=== PATIENT | female | born 1995 | race American Indian/Alaskan Native ===

== ENCOUNTER 2017-07-11 01:49 | Emergency (ER) | payer OTHER ==
[2017-07-11] MEDS ORDERED: TORADOL IM ONE (07:47)
[2017-07-11] MEDS ORDERED: NORCO 5/325 PO ONE (07:47)
[2017-07-11] MEDS ORDERED: DECADRON IM ONE (07:47)
--- NOTE | 2017-07-11 07:49 | Emergency Department Report ---
ED Neck Pain HPI Chief Complaint: Neck Pain/Injury Stated Complaint: BACK PAIN Time Seen by Provider: 07/11/17 07:09 Duration: 1 week Neck Pain Location: Posterior Neck Severity: severe Mechanism: Unsure, Other (patient reports history of scoliosis and had surgery 10 years ago. She reports some pain to her upper back bilaterally) Symptoms: Yes Pain with Movement (posterior neck and denies radiation of pain), Yes Previous History (patient reports that she has a previous history of upper back pain radiating into her upper neck from scoliosis.), No Numbness, No Weakness Other History: Patient reports that she have neck pain 1 week and she notice when she woke up 1 week ago and pain is located in the back of her neck denies any fever or chills. Denies any stiffness in her neck. Denies any radiation of pain to extremities. Denies any pain bilateral neck. She says she's been taking tramadol 50 mg every 2 hours Advil and Aleve PM. She reports minimal relief of pain medication. Pain is worse with movement better with rest. Denies any nausea or vomiting. She reports pain to upper back located bilaterally but not midline. Patient with history of scoliosis status post surgery 10 years ago. Pain is achy. Patient reports that she thinks she is pinched nerve. Reports swelling to upper back and both sides. ED Review of Systems ROS: Stated complaint: BACK PAIN Other details as noted in HPI Constitutional: denies: chills, fever, weakness Eyes: denies: eye pain ENT: denies: ear pain, throat pain, congestion Respiratory: denies: cough, orthopnea, shortness of breath, SOB with exertion, SOB at rest, stridor, wheezing Cardiovascular: denies: chest pain, palpitations, syncope Gastrointestinal: denies: abdominal pain, nausea, vomiting Genitourinary: denies: urgency, dysuria, discharge Musculoskeletal: back pain (bilateral upper back and swelling), arthralgia. denies: joint swelling, myalgia Skin: denies: rash, lesions Neurological: denies: headache, weakness, numbness, paresthesias, confusion, abnormal gait, vertigo ED Past Medical Hx - Past Medical History Previous Medical History?: Yes Hx Asthma: Yes Additional medical history: Scoliosis status post back surgery 10 years ago - Surgical History Past Surgical History?: Yes Additional Surgical History: scoliosis surgery - Family History Family history: hypertension - Social History Smoking Status: Never Smoker Substance Use Type: None Other Social History: Single and employed - Medications Home Medications: Home Medications Medication Instructions Recorded Confirmed Last Taken Type Cyclobenzaprine [Flexeril] 10 mg PO TID PRN #12 tablet 07/11/17 Unknown Rx Ibuprofen [Motrin] 600 mg PO Q8H PRN #12 tablet 07/11/17 Unknown Rx traMADol [Ultram] 50 mg PO PRN 07/11/17 07/11/17 07/10/17 23:00 History Neck Pain Exam - Exam General: Vital signs noted. No distress. Alert and acting appropriately. This is a 21-year-old female well-nourished well-developed in no acute distress. HEENT: No Facial Pain, No Scalp Tenderness, No Contusion, No Abrasion, No Laceration Neck Pain: Yes Midline Tenderness (positive C-spine tenderness. Full range of motion, no adenopathy), Yes Pain with Extension, Yes Pain with Flexion, Yes pain with R Lateral Flexion, Yes Pain with L Lateral Flexion, No Right Paraspinal Tenderness, No Left Paraspinal Tenderness, No Right Trapezius Tenderness, No Left Trapezius Tenderness, No Pain with Rotation Right, No Pain with Rotation Left Chest: Yes Clear Lung Sounds (CTAB), No Pain with Respirations Heart: Yes Regular (S1S2), No Murmur Back: No Thoracic Tenderness (no vertebral or paraspinal tenderness), No Lumbar Tenderness (vertebral or paraspinal tenderness) Neuro: No Numbness (alert and oriented 3), No Weakness, No Normal Reflexes ( normal gait,), No Radicular Deficits Exam: Extremity: No clubbing, cyanosis or edema. +2 pulses all extremities and no neurovascular compromise ED Course Vital Signs 07/11/17 07/11/17 02:41 02:58 Temperature 98.4 F 98.4 F Pulse Rate 91 H 88 Respiratory 18 20 Rate Blood Pressure 130/78 130/78 Blood Pressure 130/78 [Right] O2 Sat by Pulse 100 100 Oximetry - Reevaluation(s) Reevaluation #1: 07/11/17 09:04 Patient given Toradol 30 mg I am, hydrocodone 5/325 mg 2 tablets by mouth and Decadron 10 mg by mouth with positive relief of neck pain. She says she is feeling better and I discussed her x-ray results with her. I told patient she will need to follow-up with orthopedic doctor for management of neck pain. ED Medical Decision Making - Radiology Data Radiology results: report reviewed X-rays C-spine: Straightening of the cervical spine with mild sequela of disc degeneration suggested C4-C5 and C5-C6. No acute findings. Patient: BERNARD SANTIAGO MR#: [id number] : 1995 Acct:[id number] Age/Sex: 21 / F ADM Date: 07/11/17 Loc: ED Attending Dr: Ordering Physician: MARA SWEET Date of Service: 07/11/17 Procedure(s): XR spine cervical 2-3V Accession Number(s): [id number] cc: MARA SWEET Fluoro Time In Minutes: FINAL REPORT EXAM: XR SPINE CERVICAL 2-3V HISTORY: pain spine, neck COMPARISONS: None. FINDINGS: AP and lateral views of the cervical spine Straightening of the cervical spine. Mild intervertebral disc space narrowing with endplate spondylosis at C4-C5 and C5-C6. Partially imaged thoracic fusion hardware extends off the inferior field of view. Prevertebral soft tissues are unremarkable. Incomplete evaluation of the lung apices is unremarkable. IMPRESSION: Straightening of the cervical spine with mild sequela of disc degeneration suggested C4-C5 and C5-C6. No acute findings. Transcribed By: FRED Dictated By: GIGI ARMIJO MD Electronically Authenticated By: GIGI ARMIJO MD Signed Date/Time: 07/11/17835 DD/ 5 TD/TT: 07/11/17835 - Medical Decision Making ED course: Patient is here with neck pain that started 1 week ago. Physical findings for tenderness palpated to C-spine. X-ray of C-spine shows patient with degenerative disc disease. I discussed diagnosis and x-ray results with patient and also treatment plan and follow-up and she voiced understanding. She was given Toradol 30 mg IM, Decadron 10 mg IM and [place] 5/325 2 tablets by mouth emergency room. Patient to follow-up with Dr. Pandya and she also does not have a primary care physician so I'll refer her to [facility]. Patient discharged home with her family in stable condition. Critical care attestation.: If time is entered above; I have spent that time in minutes in the direct care of this critically ill patient, excluding procedure time. ED Disposition Clinical Impression: Arthralgia of neck, Degenerative disc disease, cervical, Upper back pain Disposition: TO HOME OR SELFCARE Is pt being admited?: No Does the pt Need Aspirin: No Condition: Stable Instructions: Back Pain (ED), Degenerative Disc Disease (ED), Arthralgia (ED), Musculoskeletal Pain (ED), Neck Exercises (GEN) Additional Instructions: Please stop taking tramadol every 2 hours as this is a narcotic and this can impair judgment Follow-up with orthopedic doctor for arthritis in your cervical spine Take Flexeril as ordered but these do not drive or operate heavy machinery of this medication can cause drowsiness Prescriptions: Cyclobenzaprine [Flexeril] 10 mg PO TID PRN #12 tablet PRN Reason: Muscle Spasm Ibuprofen [Motrin] 600 mg PO Q8H PRN #12 tablet PRN Reason: Pain Referrals: [facility] [Outside] - 3-5 Days JEREMY PANDYA MD [Staff Physician] - 2-3 Days Forms: Work/School Release Form(ED)
--- NOTE | 2017-07-11 08:40 | XRay Report ---
FINAL REPORT EXAM: XR SPINE CERVICAL 2-3V HISTORY: pain spine, neck COMPARISONS: None. FINDINGS: AP and lateral views of the cervical spine Straightening of the cervical spine. Mild intervertebral disc space narrowing with endplate spondylosis at C4-C5 and C5-C6. Partially imaged thoracic fusion hardware extends off the inferior field of view. Prevertebral soft tissues are unremarkable. Incomplete evaluation of the lung apices is unremarkable. IMPRESSION: Straightening of the cervical spine with mild sequela of disc degeneration suggested C4-C5 and C5-C6. No acute findings.
[2017-07-11 09:27] VITALS: BP 124/71
== END 2017-07-11 09:26 | disposition home or self-care (01) ==
LOC: ED 01:49
DX: M50.321 Other cervical disc degeneration at C4-C5 level (principal); M50.322 Other cervical disc degeneration at C5-C6 level; J45.909 Unspecified asthma, uncomplicated; Z91.018 Allergy to other foods
CPT/HCPCS: 72040; 96372; 99283; J1100; J1885